=== PATIENT | male | born 1960 | race Caucasian/White ===

== ENCOUNTER 2017-12-01 02:07 | Inpatient (IN) | payer OTHER ==
[~2017-12-01] VITALS: Ht 167.6 cm; Wt 105.7 kg
[~2017-12-01 02:07] MED LIST: ALFUZOSIN HCL E10 MG PO; ASPIRIN EC81 M1 PO; GLIPIZIDE10 M2 PO; GLUCOPHAGE1000 M1 PO; GLYXAMBI 25 MG1 EACH; LIPITOR10 M1 PO; LOSARTAN POTASS50 M1 PO; OMEPRAZOLE20 M3 PO
--- NOTE | 2017-12-01 09:49 | Operative Report ---
Operative/Inv Procedure Report Surgery Date: 12/01/17 Name of Procedure: Laparoscopic sleeve gastrectomy and esophagogastroduodenoscopy. Pre-Operative Diagnosis: Severe morbid obesity BMI 41, hypertension, and diabetesSevere morbid obesity BMI 41, hypertension, and diabetes Post-Operative Diagnosis: Severe morbid obesity BMI 41 hypertension and diabetes. Estimated Blood Loss: less than 50ml Surgeon/Textile Machine Mechanic: Moose Rizvi MD surgeon and Renata KUMAR is geriatric assistant His surgeon and Renata KUMAR is geriatric assistant Anesthesia: general endotracheal tube Implants: NoneNone Urine Output: Not documentedNot documented Drains: None Specimens: Part of stomach Microbiology: Test for H. pylori Complications: None Condition: Stated Operative Indication: The patient is a 57--year-old man is undergone workup and evaluation for a laparoscopic sleeve gastrectomy. I have explained the risks and potential complications of bleeding infection deep venous thrombosis pulmonary embolism injury to the esophagus stomach small intestine and large intestine injury to the surrounding tissues leakage a deep venous thrombosis pulmonary embolism injury to the mesentery with mesenteric mesenteric thrombosis among other potential complications and the patient is consented for surgical intervention. Operative/Procedure Note Note: The patient was brought into the operating room placed in the operating room table in the supine position. After the administration of general anesthesia the patient was prepped and draped in the sterile fashion. An incision was made below the umbilicus through previous incision site probably from his gallbladder brought out of the fascia and the fascia was incised with electrocautery to [id number] 0 Vicryl sutures were placed in the fascia. Blunt port was inserted into the abdomen the abdomen is insulated with CO2 gas. A 5 mm port was placed in the right upper quadrant a 12 mm port in the right midabdomen. 12 mm port jail between the xiphoid and the umbilicus. Mill5 mm port in the left upper quadrant. The abdomen was insufflated with CO2 gas. And at this time the Kelsey liver retractor was used to elevate the abdominal cavity. All the ports were placed under direct vision. There is no evidence of visible hiatal hernia Was no evidence of visible hiatal hernia. Gastro-colic ligament was taken down with the LigaSure device 12 mm. this was extended all the way up and taking down all of the short gastric vessels. The pancreas was seen below and the left crura of the diaphragm was at accessed. And cleaned off. At this time the stomach was decompressed with an NG tube and then the NG tube was removed. 38 Hebrew bougie was inserted into the stomach. The balloon was performed first with 2 black cartridges with seam guard and then changing o purple cartridges with seam guard. The remaining remaining the last staple was performed with a The remaining him remaining the last staple purple cartridge without seam guard. Excellent hemostasis there was no evidence of bleeding. Stomach was placed in a laparoscopic bag and retrieved through the umbilicus. Ours could be seen the stomach small intestine large intestine liver or pancreas spleen appeared within normal limits. Upper endoscopy was then performed the usual fashion Olympus endoscope inserted in the posterior oropharynx down the esophagus and into the stomach the GE junction was noted at 40 cm there was no visible hiatal hernia. Reason excellent gastric sleeve which extended from the GE junction down into the antrum and there was no twisting obstruction or torsion. Stomach was suctioned out and the scope was removed. Stomach was suctioned out and the scope was removed. Laparoscopy was completed no KANCHAN drain was placed the ports removed under direct vision the gas removed from the abdomen the Valsalva maneuvers performed. The fascia was then closed with 2 interrupted figure-of- eight 0 Vicryl sutures. Fascia was closed with 0.5% Marcaine. She was closed with 0.5% Marcaine. He was injected with 0.5% Marcaine. Was injected with 0.5% Marcaine. It was closed with 4-0 Monocryl. Strips were placed and the wounds had shortness and on the wound the patient to have the procedure well end of dictation.
--- NOTE | 2017-12-01 10:29 | Admission Core Measures ---
Acute Coronary Syndrome (CM) ACS Core Measures Acute Coronary Syndrome Diagnosis No Congestive Heart Failure (NEW) CHF Core Measures Congestive Heart Failure Diagnosis No Cerebrovascular Accident CVA Core Measures CVA/TIA Diagnosis No Venous Thromboembolism VTE Core Mary (View Protocol) VTE Risk Factors Surgery No Mechanical VTE Prophylaxis d/t N/A MechProphylax Ordered No VTE Pharm Prophylaxis d/t NA PharmProphylax ordered Problem List As ranked by this Provider includes Assessment & Plan 1. S/P laparoscopic sleeve gastrectomy 2. Hyperlipidemia 3. Hypertension 4. GERD (gastroesophageal reflux disease) 5. Diabetes 6. Morbid obesity HOME MEDS Home Med List Alfuzosin HCl (Alfuzosin HCl ER) 10 MG TAB.ER.24H 1 TAB PO DAILY prostate ( Reported) Aspirin (Ecotrin*) 81 MG TABLET.DR 1 TAB PO DAILY cardiac (Reported) Atorvastatin Calcium (Lipitor) 10 MG TABLET 1 TAB PO DAILY cholesterol ( Reported) Glipizide 10 MG TABLET 1 TAB PO BID dm (Reported) Losartan Potassium 50 MG TABLET 1 TAB PO DAILY htn (Reported) Metformin HCl (Glucophage) 1,000 MG TABLET 1 TAB PO BID dm (Reported) Omeprazole 20 MG TABLET.DR 1 TAB PO QOD GERD (Reported)
--- NOTE | 2017-12-01 10:33 | Surg Short-stay <48hrs Dis Sum ---
Visit Information Visit Dates Admission Date: 12/01/17 Discharge Date: 12/03/17 Surgical Short Stay DC Summary Admission Diagnosis: Severe morbid obesity (BMI 41), hypertension, gerd, and diabetes Final Diagnosis: Severe morbid obesity (BMI 41), hypertension, gerd, and diabetes Procedure(s): Surgery Date: 12/01/17 Name of Procedure: Laparoscopic sleeve gastrectomy and esophagogastroduodenoscopy Summary/Significant Findings: Electively scheduled laparoscopic sleeve gastrectomy and esophagogastroduodenoscopy, by Dr.Neil Rizvi on 12/01/17. Started on stage 1 bariatric diet post-operatively. Upper gi study done on post-op day#1 to rule out leak and obstruction. Accuchecks monitored post-operatively while oral diabetic medications taken previously were stopped. His losartan 50mg daily continued for ongoing hypertension. Pain control transitioned from iv to oral medication. Lovenox teaching done prior to discharge home. Tolerating stage 1 bariatric diet prior to discharge home. Condition at Discharge: stable Discharge Disposition: home or self care Discharge instructions provided to patient/family: Yes Post discharge follow-up plan: one week follow up with continue lovenox injections, as directed Copies to: Ronny HYDE,Sanjeev Padilla
--- NOTE | 2017-12-01 10:48 | Patient Discharge Instructions ---
Discharge Instructions General Discharge Information You were seen/treated for: Severe morbid obesity (BMI 41), hypertension, and diabetes You had these procedures: Surgery Date: 12/01/17 Name of Procedure: Laparoscopic sleeve gastrectomy and esophagogastroduodenoscopy. Watch for these problems: FEVER>101.3, INCREASED PAIN, REDNESS/SWELLING/DRAINAGE, DIZZINESS, SHORTNESS OF BREATH, CHEST PAINS No bath, but you may shower: Yes Other wound care: OK TO REMOVE OUTER DRESSINGS. LEAVE WHITE STERI STRIPS IN PLACE. KEEP INCISIONS CLEAN & DRY. Special Instructions: OK TO SHOWER. NO BATHING. Diet Continue normal diet: No Recommended Diet: Bariatric Additional DIET Information: WEEKLY BARIATRIC STAGE DIET ADVANCEMENT TOLERATED, DIRECTED Activity Full Activity/No Limits: No Activity Self Limited: Yes Pounds, do NOT lift more than: 10 Other activity limits: CONTINUE WALKING FREQUENTLY Additional ACTIVITY Info: NO HEAVY LIFTING. NO STRENUOUS ACTIVITY. Acute Coronary Syndrome Inclusion Criteria At DC or during hospital stay patient has or had the following: ACS DIAGNOSIS No Discharge Core Measures Meds if any: Prescribed or Continued at Discharge Meds if any: NOT Prescribed or Continued at Discharge Congestive Heart Failure Inclusion Criteria At DC or during hospital stay patient has or had the following: CHF DIAGNOSIS No Discharge Core Measures Meds if any: Prescribed or Continued at Discharge Meds if any: NOT Prescribed or Continued at Discharge Cerebrovascular accident Inclusion Criteria At DC or during hospital stay patient has or had the following: CVA/TIA Diagnosis No Discharge Core Measures Meds if any: Prescribed or Continued at Discharge Meds if any: NOT Prescribed or Continued at Discharge Venous thromboembolism Inclusion Criteria VTE Diagnosis No VTE Type NONE VTE Confirmed by (Test) NONE Discharge Core Measures - Per Current guidelines, there needs to be overlap - treatment for the first 5 days of Warfarin therapy. - If discharged on Warfarin prior to 5 days of - overlap therapy, the patient will need to be - assessed for post discharge needs including - *Post discharge parental anticoagulation - *Warfarin and/or parental anticoagulation education - *Follow up date to check INR post discharge At least 5 days overlap therapy as Inpatient No Meds if any: Prescribed or Continued at Discharge Note: Overlap Therapy is Warfarin and Anticoagulant Meds if any: NOT Prescribed or Continued at Discharge
[2017-12-01] MEDS ORDERED: LOVENOX40 MG/0.1 SC (10:51)
[2017-12-01] MEDS ORDERED: HYCET 7.5 MG-3473 ML PO ×2 (10:51→13:18)
[2017-12-01 11:50] VITALS: BP 142/86
--- NOTE | 2017-12-01 13:11 | PN- Bariatrics ---
Subjective Subjective: POST-OP NOTE Reports some gas pains. No nausea at the moment. Expresses eagerness to walk. No dizziness. No shortness of breath. No chest pains. He states he filled lovenox prescription already, and understands its relevance. Reports his baseline heart rate is high 90s, for which his doctor recommended bystolic (beta juni), however the patient did not want to pay for this expensive medication. He currently denies dizziness. No shortness of breath. No chest pains. Objective Vital Signs and I&Os Vital Signs Date Time Temp Pulse Resp B/P B/P Pulse O2 O2 Flow FiO2 Mean Ox Delivery Rate 12/01 1307 Nasal 2.0L Cannula 12/01 1150 98.0 98 16 142/86 94 Nasal 2.0L Cannula Intake & Output 12/01 1600 12/01 0800 12/01 0000 11/30 1600 11/30 0800 11/30 0000 Intake Total Output Total Balance Patient 233 lb Weight Weight Reported by Patient Measurement Method Physical Exam: General - alert & oriented x 3. comfortable. no acute distress. Lungs - clear bilaterally. no w/r/r. Cardiac - s1s2. borderline tachycardia (this is his baseline in high 90s) Abdomen - obese. dressings c/d/i. no drains. expected miri-incisional tenderness. Extremities - warm bilaterally. no c/c/e. calves soft and nontender b/l. athrombics active. Current Medications: Current Medications Sig/David Start time Last Medication Dose Route Stop Time Status Admin Acetaminophen 0 .STK-MED ONE 12/01 1223 DC IV Acetaminophen 1,000 MG Q6 12/01 1200 AC 12/01 N/A 1 UNIT IV 12/02 0614 1221 Acetaminophen 0 .STK-MED ONE 12/01 0713 DC IV Bupivacaine HCl 10 ML .STK-MED ONE 12/01 1123 DC SC 12/01 1124 Cefazolin Sodium 2,000 MG IQ8 12/01 1600 CAN IV 12/02 0001 Cefazolin Sodium 2 GM IQ8 12/01 1600 AC N/A 1 UNIT IV 12/02 0029 Cefazolin Sodium 2,000 MG ONCE 12/01 0000 DC IV 12/01 2359 Dexamethasone 8 MG ONCE PRN 12/01 1215 AC IV PUSH 12/01 1815 Dexamethasone 0 .STK-MED ONE 12/01 0704 DC .ROUTE Dexamethasone 10 MG ONCE 12/01 0000 DC IV 12/01 2359 Dextrose/Sodium 1,000 ML Q8H 12/01 1215 AC 12/01 Chloride IV 1214 Fentanyl Citrate 0 .STK-MED ONE 12/01 713 DC .ROUTE Heparin Sodium 5,000 UNIT Q8 12/01 1400 AC (Porcine) SC Heparin Sodium 0 .STK-MED ONE 12/01 0704 DC (Porcine) .ROUTE Heparin Sodium 5,000 UNIT ONCE 12/01 0000 DC (Porcine) SC 12/01 2359 Hydrocodone Bitart/ 15 ML Q4-6 PRN PRN 12/02 1200 AC Acetaminophen PO Hydromorphone HCl 0 .STK-MED ONE 12/01 07 DC .ROUTE Influenza Virus 0.5 ML ONCE ONE 12/01 1315 AC Vaccine IM 12/01 1316 Insulin Aspart 0 Q6 12/01 1200 AC 12/01 SC 1240 Ketorolac 30 MG Q6P PRN 12/01 1045 AC Tromethamine IV Ketorolac 0 .STK-MED ONE 12/01 713 DC Tromethamine .ROUTE Midazolam HCl 0 .STK-MED ONE 12/01 712 DC .ROUTE Morphine Sulfate 2 MG Q4-6 PRN PRN 12/01 1215 AC IV Ondansetron HCl 4 MG Q6P PRN 12/01 1215 AC IV Ondansetron HCl 0 .STK-MED ONE 12/01 1041 DC .ROUTE Ondansetron HCl 0 .STK-MED ONE 12/01 07 DC .ROUTE Pantoprazole Sodium 40 MG DAILY 12/02 0900 AC IV Simethicone 40 MG Q6P PRN 12/01 1215 AC PO Tamsulosin HCl 0.4 MG DAILY@1800 12/01 1800 AC PO Assessment/Plan Assessment/Plan This 57 year old male with severe morbid obesity (BMI 41), hypertension, and niddm, is POD#0 s/p laparoscopic sleeve gastrectomy and esophagogastroduodenoscopy, with baseline heart rate in 90s stage 1 bariatric diet as tolerated npo after midnight for upper gi study in AM monitor accuchecks / ss coverage monitor blood pressure. restart losartan if hypertension is ongoing ancef x 2 post-op iv tylenol / toradol / morphine prn pain. start hycet elixir tomorrow oob/ambulation hep sc - dvt ppx lovenox teaching for home protonix - gi ppx f/u AM labs will d/w Dr.Neil Rizvi Core Measures Venous Thromboembolism VTE Risk Factors Surgery No Mechanical VTE Prophylaxis d/t N/A MechProphylax Ordered No VTE Pharm Prophylaxis d/t NA PharmProphylax ordered
[2017-12-01] MEDS ORDERED: OMEPRAZOLE40 M1 PO (13:18)
[2017-12-01 14:13] VITALS: BP 162/88
[2017-12-01 14:52] VITALS: BP 156/86
[2017-12-01 16:10] VITALS: BP 146/86
[2017-12-01 22:17] VITALS: BP 147/97
[2017-12-02 06:45] VITALS: BP 157/88
--- NOTE | 2017-12-02 07:33 | PN- Bariatrics ---
Subjective Subjective: Reports pain controlled. Tolerated stage 1 diet up until midnight. Currently npo awaiting upper gi study this morning. Ambulating well. No dizziness. No shortness of breath. Voiding well. Passing flatus. Objective Vital Signs and I&Os Vital Signs Date Time Temp Pulse Resp B/P B/P Pulse O2 O2 Flow FiO2 Mean Ox Delivery Rate 12/02 0645 98.4 83 20 157/88 97 Room Air 12/02 0600 Room Air 12/01 2217 98.4 107 18 147/97 95 Room Air 12/01 2200 95 Room Air 12/01 1838 100 146/86 12/01 1800 95 Room Air 12/01 1630 100 12/01 1610 98.3 113 16 146/86 96 12/01 1600 96 Room Air 12/01 1452 104 156/86 96 Room Air 12/01 1413 98.3 109 18 162/88 95 Nasal 2.0L Cannula 12/01 1400 96 Room Air 12/01 1307 Nasal 2.0L Cannula 12/01 1200 95 Nasal 2.0L Cannula 12/01 1150 98.0 98 16 142/86 94 Nasal 2.0L Cannula Intake & Output 12/02 0800 12/02 0000 12/01 1600 12/01 0800 12/01 0000 11/30 1600 Intake Total 1000 1060 830 Output Total 1300 900 Balance 1000 -240 -70 Intake, IV 1000 500 Intake, Oral 0 1060 330 Output, Urine 1300 900 Patient 233 lb Weight Weight Reported by Patient Measurement Method Physical Exam: General - alert & oriented x 3. comfortable. no acute distress. Lungs - clear bilaterally. no w/r/r. Cardiac - s1s2. reg. Abdomen - soft. dressings c/d/i. no drains. expected miri-incisional tenderness. Extremities - warm bilaterally. no c/c/e. calves soft and nontender b/l. athrombics active. Current Medications: Current Medications Sig/David Start time Last Medication Dose Route Stop Time Status Admin Acetaminophen 1,000 MG Q6H PRN 12/01 1403 AC 12/02 N/A 1 UNIT IV 12/02 0803 0550 Acetaminophen 0 .STK-MED ONE 12/01 1223 DC IV Acetaminophen 1,000 MG Q6 12/01 1200 DC 12/01 N/A 1 UNIT IV 12/02 0514 1221 Bupivacaine HCl 10 ML .STK-MED ONE 12/01 1123 DC SC 12/01 1124 Bupivacaine Liposome 266 MG .STK-MED ONE 12/01 1536 DC INF 12/01 1537 Cefazolin Sodium 2,000 MG IQ8 12/01 1600 CAN IV 12/02 0001 Cefazolin Sodium 2 GM IQ8 12/01 1600 DC 12/01 N/A 1 UNIT IV 12/02 0029 2335 Cefazolin Sodium 2,000 MG ONCE 12/01 0000 DC IV 12/01 2359 Dexamethasone 8 MG ONCE PRN 12/01 1215 DC IV PUSH 12/01 1815 Dexamethasone 10 MG ONCE 12/01 0000 DC IV 12/01 2359 Dextrose/Sodium 1,000 ML Q8H 12/01 1215 r 12/02 Chloride IV 0324 Heparin Sodium 5,000 UNIT Q8 12/01 1400 AC 12/02 (Porcine) SC 0553 Heparin Sodium 5,000 UNIT ONCE 12/01 0000 DC (Porcine) SC 12/01 2359 Hydrocodone Bitart/ 15 ML Q4-6 PRN PRN 12/02 1200 DC Acetaminophen PO Hydrocodone Bitart/ 15 ML Q4-6 PRN PRN 12/01 1415 AC 12/02 Acetaminophen PO 0703 Hydrocodone Bitart/ 0 .STK-MED ONE 12/01 1359 DC Acetaminophen PO Influenza Virus 0 .STK-MED ONE 12/01 1532 DC Vaccine IM Influenza Virus 0.5 ML ONCE ONE 12/01 1315 DC 12/01 Vaccine IM 12/01 1316 1534 Insulin Aspart 0 Q6 12/01 1200 AC 12/02 SC 0558 Ketorolac 30 MG Q6P PRN 12/01 1045 AC 12/02 Tromethamine IV 0104 Losartan Potassium 50 MG DAILY 12/02 0900 UNVr PO Morphine Sulfate 2 MG Q4-6 PRN PRN 12/01 1215 AC 12/01 IV 2308 Ondansetron HCl 4 MG Q6P PRN 12/01 1215 AC IV Ondansetron HCl 0 .STK-MED ONE 12/01 1041 DC .ROUTE Pantoprazole Sodium 40 MG DAILY 12/02 0900 AC IV Simethicone 40 MG Q6P PRN 12/01 1215 AC 12/02 PO 0322 Tamsulosin HCl 0.4 MG DAILY@1800 12/01 1800 AC 12/01 PO 1838 Results Last 48 Hours of Labs: Laboratory Tests 12/02 0641 Chemistry Sodium Pending Potassium Pending Chloride Pending Carbon Dioxide Pending Anion Gap Pending BUN Pending Creatinine Pending BUN/Creatinine Ratio Pending Glucose Pending Magnesium Pending Hematology CBC w Diff Pending WBC Pending RBC Pending Hgb Pending Hct Pending MCV Pending MCH Pending MCHC Pending RDW Pending Plt Count Pending MPV Pending Assessment/Plan Assessment/Plan This 57 year old male with severe morbid obesity (BMI 41), hypertension, and niddm, is POD#1 s/p laparoscopic sleeve gastrectomy and esophagogastroduodenoscopy currently npo after midnight for upper gi study this morning monitor accuchecks / ss coverage (160s -170s, improving) will restart losartan for ongoing hypertension pain controlled with hycet ancef x 2 post-op completed oob/ambulating well hep sc - dvt ppx lovenox teaching for home protonix - gi ppx f/u AM labs and upper gi will d/w Dr.Neil Rizvi Core Measures Venous Thromboembolism VTE Risk Factors Surgery No Mechanical VTE Prophylaxis d/t N/A MechProphylax Ordered No VTE Pharm Prophylaxis d/t NA PharmProphylax ordered
[2017-12-02 07:47] LABS: ABSOLUTE BASOPHIL COUNT 0 /CUMM (0.0-0.2); ABSOLUTE EOSINOPHIL COUNT 0.1 /CUMM (0.0-0.7)
[2017-12-02 08:02] LABS: ABSOLUTE GRANULOCYTE CT 3.8 /CUMM (1.4-6.5); ABSOLUTE MONOCYTE COUNT 0.4 /CUMM (0.10-0.60); BASOPHIL % 0.2 % (0.0-2.0); EOSINOPHIL % 1.7 % (0-5); GRANULOCYTE % 72.8 % (42.2-75.2); MEAN CORPUSCULAR HGB 27.2 PG (27.0-31.0); MEAN CORPUSCULAR HGB CONC 34.3 G/DL (33.0-37.0); MEAN CORPUSCULAR VOLUME 79.4 FL (80.0-94.0); MEAN PLATELET VOLUME 8.4 FL (7.4-10.4); PLATELET COUNT 177 /CUMM (130-400); RBC DISTRIBUTION WIDTH 13.6 % (11.5-14.5); RED BLOOD CELL CT 4.82 /CUMM (4.70-6.10); WHITE BLOOD CELL COUNT 5.2 /CUMM (4.8-10.8)
[2017-12-02 08:05] LABS: HEMATOCRIT 38.3 % (42-52)
--- NOTE | 2017-12-02 12:23 | Event Note ---
Event Note Event Note: Upper GI series viewed by Chaya Fischer MD, radiology. Per Dr. Fischer, there is no evidence of leak and patient may resume diet.
[2017-12-02 14:07] VITALS: BP 130/82
--- NOTE | 2017-12-02 14:09 | RADIOLOGY REPORT ---
EXAMINATION: FLUOROSCOPY UPPER GI WITH GASTROGRAFIN WITH KUB CLINICAL INFORMATION: 1 day status post gastric sleeve procedure. Postoperative evaluation. Rule out leak and obstruction. COMPARISON: None. TECHNIQUE: A preliminary senior formulation scientist view of the abdomen was performed. A limited Gastrografin upper GI study was performed using 30 ml of Gastroview with the patient in the semiupright position. Multiple (8) spot films and one cine fluoroscopy run were acquired. FINDINGS: The preliminary senior formulation scientist view of the abdomen demonstrates postsurgical suture line in the epigastric region. Right upper quadrant sharyn are also in place, likely representing prior cholecystectomy. Normal bowel gas pattern is seen without abnormal bowel distention noted. Esophageal distensibility and motility is normal. The GE junction is located below the level of the diaphragm and no GE reflux seen. The remnant gastric pouch is normal with no abnormal distention or contrast leak seen. There is prompt emptying of contrast into the duodenum, which is unremarkable in appearance. FLUOROSCOPY TIME: 41 seconds. IMPRESSION: Unremarkable examination with no evidence of contrast leak or gastric outlet obstruction.
[2017-12-02 22:10] VITALS: BP 135/79
[2017-12-03 06:16] VITALS: BP 134/84
--- NOTE | 2017-12-03 07:13 | PN- Student ---
Krista Shinna 12/03/17 0658: Subjective Subjective: 57 yo male pod 2 s/p lap sleeve gastrectomy feels a little bloated but no complaints otherwise. Patient reports pain is well-managed, denies pain at rest. Pt tolerated stage 1 diet well, is spontaneously voiding clear urine, passing flatus, and had one BM overnight. Pt has been ambulating on his own but admits not using his IS as much as he should. Pt feels ready to advance diet and d/c. Pt denies nausea, vomitting, diarrhea, SOB, chest pain, or dizziness Objective Objective: Vital Signs Date Time Temp Pulse Resp B/P B/P Pulse O2 O2 Flow FiO2 Mean Ox Delivery Rate 12/03 0616 98.4 85 18 134/84 96 Room Air 12/02 2343 98 Room Air Room Air 12/02 2339 Room Air Room Air 12/02 2210 98.8 89 18 135/79 97 Room Air 12/02 2000 97 Room Air 12/02 1908 89 130/82 12/02 1407 98.2 89 18 130/82 95 Room Air 12/02 1400 97 Room Air 12/02 1041 92 140/88 12/02 0800 97 Room Air Intake & Output 12/03 0800 12/03 0000 12/02 1600 Intake Total 6023 665 6717 Output Total 1150 300 200 Balance 163 183 1251 Intake, IV 2245 140 7905 Intake, Oral 60 180 530 Output, Urine 1150 300 200 Gastrograffin UGI study shows no evidence of leak or gastric outlet obstruction (12/02) Physical exam: Gen: middle-aged male sitting up comfortably in bed, conversant, AOx4 CV: RRR, no m/r/g Resp: Good air movement, vesicular b/l, no w/r/r Abd: mildly distended, hypoactive BS, hyperressonant, non-tender, dressings on abd clean, dry intact. Ext: 3+ dorsalis pedis pulses b/l, non-tender, no pedal edema Assessment/Plan Assessment: 57 yo male with morbid obesity (BMI 41), HTN, and NIDDM, is POD#2 s/p laparoscopic sleeve gastrectomy and esophagogastroduodenoscopy stable with no acute complaints Plan: Advance to stage 2 bariatric diet as tolerated Monitor accuchecks/ss coverage and BP D/c ancef 2/2 complete Transition pain meds from IV tylenol/toradol/morphine to PO tylenol and vicodin, cont. hycet elixir oob/ambulation/is Dvt ppx - hep sc GI ppx - protonix f/u AM labs D/c pending to home will d/w Surg PA and Arnav Larkin 12/03/17 0735: Assessment/Plan Plan: Patient reports improved pain compared to yesterday. He is tolerating a stage 1 diet without nausea or vomiting. He is passing flatus and had a small bm. He is eager to go home today. On exam, afebrile, vss. abdomen soft, obese, dressing c/ d/i, +bs. Transition to oral pain meds. Lonveox on discharge. D/c home today. Will d/w Dr. Rizvi
[2017-12-03 08:05] VITALS: BP 134/84
== END 2017-12-03 10:15 | DRG 621 ==
LOC: SDA 02:07 → 2NB 02:07 → SDA 07:00 → ENRESERV 10:48 → ENTRNSPT 11:32 → EDTRNSPT 11:56 → EDTRNSPTSTS 11:56 → CMPTRNSPT 11:59 → 2NB 12:01 → ENPENDDIS 12-03 08:43 → 2NB 12-03 10:15
PROVIDERS: Physician Assistant
PROC: 0DJ08ZZ Inspection of Upper Intestinal Tract, Via Natural or Artificial Opening Endoscopic (ICD-10-PCS; principal; 2017-12-01)
PROC: 0DB64Z3 Excision of Stomach, Percutaneous Endoscopic Approach, Vertical (ICD-10-PCS; principal; 2017-12-01)
PROC: 3E0T3BZ Introduction of Anesthetic Agent into Peripheral Nerves and Plexi, Percutaneous Approach (ICD-10-PCS; principal; 2017-12-01)
DX: E66.01 Morbid (severe) obesity due to excess calories (principal); Z68.41 Body mass index [BMI] 40.0-44.9, adult; I10 Essential (primary) hypertension; K21.9 Gastro-esophageal reflux disease without esophagitis; E11.9 Type 2 diabetes mellitus without complications; Z79.84 Long term (current) use of oral hypoglycemic drugs; Z90.49 Acquired absence of other specified parts of digestive tract; Z98.1 Arthrodesis status
CPT/HCPCS: 2NBP; 36592; 74240; 82436; 88307; C9290; J0131; J0690; J1100; J1644; J1885; J2405; J3490; J7042; Q2036